=== PATIENT | female | born 1945 | race Caucasian/White ===

== ENCOUNTER 2017-01-19 15:53 | Emergency (ER) | payer MEDICARE ==
--- NOTE | 2017-01-19 16:47 | ERPHSYRPT ---
- History of Present Illness Time Seen by Provider: 01/19/17 16:30 Source: patient Patient Subjective Stated Complaint: left eye swelling, itching. also has swelling to left forehead. started at noon today Triage Nursing Assessment: ambulated to room per self. skin w/d, color normal. resp easy. swelling noted to left forehead and left eyelid. denies any injury to eye. Physician History: CC: swelling left eyelid Hx: 71 y/o pt of Dr Jason Grant. She has hx of HTN. No DM. Around noon today she noted swelling and a sore feeling at medial right eyelid. No blurred vision. No fever or chills. No bite or sting. No hx of this in the past. No itching or rash. It has worsened thru out the day. Timing/Duration: today (noon) Allergies/Adverse Reactions: Sulfa (Sulfonamide Antibiotics) [Sulfa(Sulfonamide Antibiotics)] Allergy ( Verified 01/19/17 16:12) Home Medications: Gabapentin [Neurontin] 100 mg PO DAILY 05/16/15 [History] Hydrocodone Bit/Acetaminophen [Hydrocodon-Acetaminophen 5-325] 1 each PO Q4- 6HPRN PRN 05/16/15 [History] Lisinopril 20 mg [Zestril 20 MG] 20 mg PO DAILY 05/16/15 [History] Sumatriptan Succinate [Imitrex] 50 mg PO DAILY 05/16/15 [History] Famotidine 20 mg [Pepcid 20 MG] 20 mg PO HS 03/12/16 [History] Hx Tetanus, Diphtheria Vaccination/Date Given: No (unknown) Hx Influenza Vaccination/Date Given: No Hx Pneumococcal Vaccination/Date Given: No - Review of Systems Constitutional: No Fever, No Chills Eyes: No Eye Redness, No Itchy, No Vision Changes Ears, Nose, & Throat: No Symptoms Skin: No Cellulitis, No Rash Neurological: No Dizziness, No Focal Weakness, No Headache, No Parasthesia All Other Systems: Reviewed and Negative - Past Medical History Pertinent Past Medical History: Yes Neurological History: Migraines, TIA Cardiac History: No Pertinent History Respiratory History: No Pertinent History Endocrine Medical History: No Pertinent History Musculoskeletal History: Other Other Medical History: L knee scope, R knee pain, TIA x2 - Past Surgical History Past Surgical History: Yes Musculoskeletal: Orthopedic Surgery Female Surgical History: Other - Social History Smoking Status: Never smoker Exposure to second hand smoke: No Drug Use: none Patient Lives Alone: No - Nursing Vital Signs Nursing Vital Signs: Initial Vital Signs Temperature 98.2 F 01/19/17 16:04 Pulse Rate 69 01/19/17 16:04 Respiratory Rate 16 01/19/17 16:04 Blood Pressure 172/89 01/19/17 16:04 O2 Sat by Pulse Oximetry 98 01/19/17 16:04 Pain Scale Pain Intensity 7 - Physical Exam General Appearance: alert Eye Exam: PERRL/EOMI, other (boggy edema right medial upper eyelid now extending across the lid. Some mild tenderness supraorbital area. No redness, drng, erythema, or marked tenderness. EOMI.) Ears, Nose, Throat Exam: normal ENT inspection, moist mucous membranes, other ( no tongue or mouth swelling), No pharyngeal erythema Neck Exam: normal inspection, non-tender, supple Respiratory Exam: normal breath sounds, lungs clear Cardiovascular Exam: regular rate/rhythm Neurologic Exam: alert, oriented x 3, cooperative, sensation nml, No motor deficits Skin Exam: warm, dry, No rash SpO2: 98 Oxygen Delivery: Room Air - Course Nursing assessment & vital signs reviewed: Yes - Progress Progress Note: 01/19/17 16:46 BP up some- advised recheck with Dr Grant. This does not appear to be periorbital cellulitis. It appears more allergic or angioedema. Afebrile. Will Rx hydroxyzine, stop lisinopril, start norvasc, and cover with kefelx. Instr given. Counseled pt/family regarding: diagnosis, need for follow-up - Departure Time of Disposition: 16:47 Departure Disposition: Home Clinical Impression: angioedema left eyelid, Hypertension Condition: Stable Critical Care Time: No Referrals: MARGI GRANT [ACTIVE STAFF] - Instructions: Angioedema Additional Instructions: Stop lisinopril. Rx norvasc. Rx hydroxyzine- no driving. Rx keflex. Return for fever, chills, marked worsening, pain out or proportion, trouble breathing, or concerns. Follow up with Dr Grant Sunday. Stay with family tonite. Prescriptions: Hydroxyzine HCl 1 tab PO Q6H PRN PRN #20 tablet PRN Reason: rash,rest Amlodipine Besylate 5 mg [Norvasc 5 mg] 5 mg PO DAILY #14 tablet Cephalexin Mh 500 mg [Keflex 500 mg] 1 cap PO QID #28 capsule
[2017-01-19 16:57] VITALS: BP 160/107; PULSE 65; O2SAT 97
== END 2017-01-19 17:02 | disposition home or self-care (01) ==
LOC: ED 15:53
DX: T78.3XXA Angioneurotic edema, initial encounter (principal); I10 Essential (primary) hypertension; Z79.891 Long term (current) use of opiate analgesic; Z79.899 Other long term (current) drug therapy
CPT/HCPCS: 99281

== ENCOUNTER 2017-04-10 11:26 | Emergency (ER) | payer MEDICARE ==
[2017-04-10 11:49] VITALS: O2SAT 97
--- NOTE | 2017-04-10 11:49 | ERPHSYRPT ---
- History of Present Illness Time Seen by Provider: 04/10/17 11:36 Source: patient, family Exam Limitations: no limitations Patient Subjective Stated Complaint: pt here for pain to left leg since sunday getting worse, no injury noted Triage Nursing Assessment: pt walked in, resp easy, skin w/d. has bruising to alvarez, no sweliing noted, pepdal pulse strong Physician History: patient with pain left lower leg - no known injury; no sob; no hemoptosis; no hx dvt; no prior hx; noticed painful bruise 3 days ago Method of Injury: unknown Occurred: days ago (3) Quality: aching Lower Extremities Pain: leg: left (anterior medical lower) Modifying Factors: Improves With: other (walking aggravates) Associated Symptoms: none Allergies/Adverse Reactions: Sulfa (Sulfonamide Antibiotics) [Sulfa(Sulfonamide Antibiotics)] Allergy ( Verified 04/10/17 11:41) Home Medications: Amlodipine Besylate 5 mg [Norvasc 5 mg] 10 mg PO DAILY 04/10/17 [History] Hx Tetanus, Diphtheria Vaccination/Date Given: No (unknown) Hx Influenza Vaccination/Date Given: No Hx Pneumococcal Vaccination/Date Given: No Immunizations Up to Date: Yes - Review of Systems Constitutional: No Symptoms Eyes: No Symptoms Ears, Nose, & Throat: No Symptoms Respiratory: No Cough, No Cyanosis, No Dyspnea, No Wheezing Cardiac: No Chest Pain, No Edema, No Palpitations, No Syncope Abdominal/Gastrointestinal: No Abdominal Pain, No Nausea, No Vomiting, No Diarrhea Genitourinary Symptoms: No Symptoms Musculoskeletal: No Back Pain, No Neck Pain, No Fall, No Joint Redness, No Joint Pain, No Joint Swelling Skin: Other (painful bruise left lwoer lag- anterior medial) Neurological: No Symptoms Psychological: No Symptoms Endocrine: No Symptoms Hematologic/Lymphatic: No Symptoms - Past Medical History Pertinent Past Medical History: Yes Neurological History: Migraines, TIA Cardiac History: No Pertinent History Respiratory History: No Pertinent History Endocrine Medical History: No Pertinent History Musculoskeletal History: Other Other Medical History: L knee scope, R knee pain, TIA x2 - Past Surgical History Past Surgical History: Yes Musculoskeletal: Orthopedic Surgery Female Surgical History: Other - Social History Smoking Status: Never smoker Exposure to second hand smoke: No Drug Use: none Patient Lives Alone: No Significant Family History: no pertinent family hx - Female History Hx Last Menstrual Period: post Hx Now: No - Nursing Vital Signs Nursing Vital Signs: Initial Vital Signs Temperature 97 F 04/10/17 11:30 Pulse Rate 83 04/10/17 11:30 Respiratory Rate 16 04/10/17 11:30 Blood Pressure 149/70 04/10/17 11:30 O2 Sat by Pulse Oximetry 97 04/10/17 11:30 Pain Scale Pain Intensity 6 - Physical Exam General Appearance: mild distress, alert, thin Eyes, Ears, Nose, Throat Exam: normal ENT inspection, TMs normal, pharynx normal , moist mucous membranes Neck Exam: normal inspection, non-tender, supple, full range of motion, No Kernig's, No carotid bruit, No JVD Cardiovascular/Respiratory Exam: chest non-tender, normal breath sounds, regular rate/rhythm, heart sounds normal, no JVD, no M/R/G, no respiratory distress Gastrointestinal/Abdominal Exam: non-tender, soft, no organomegaly Back Exam: normal inspection, normal range of motion, No CVA tenderness Hips Exam: bilateral: non-tender, normal inspection, normal range of motion, no evidence of injury Legs Exam: right leg: non-tender, normal inspection, no evidence of injury, ecchymosis (anterior medial bruise tender and slightly swollen), left leg: pain (anterior medial bruise tender and slightly swollen), soft tissue tenderness ( anterior medial bruise tender and slightly swollen), bilateral leg: normal range of motion Knees Exam: bilateral knee: non-tender, normal inspection, normal range of motion, no evidence of injury Ankle Exam: bilateral ankle: non-tender, normal inspection, normal range of motion, no evidence of injury Foot Exam: right foot: normal inspection, no evidence of injury, left foot: ecchymosis (old medial aspect; non tender), bilateral foot: non-tender, normal range of motion DTR - Lower Extremities Exam: knee (R): 4+, knee (L): 4+ Neuro/Tendon Exam: normal sensation, normal motor functions, normal tendon functions, responds to pain, no evidence tendon injury Mental Status Exam: alert, oriented x 3, cooperative Skin Exam: normal color, warm, dry, ecchymosis (left lower leg anterior medial) , No rash, No petechiae SpO2 Interpretation: normal SpO2: 97 Oxygen Delivery: Room Air - Course Nursing assessment & vital signs reviewed: Yes - Radiology Ultrasound Exam Left Venous Lower Extremity Ultrasound: tele radiology report, negative (no dvt) Ordered Tests: Active Orders 24 hr Category Date Time Status Pulse Oximetry (ED) STAT Care 04/10/17 11:43 Active VENOUS UNILAT/LIMITED EXTREMIT [US] Stat Exams 04/10/17 11:42 Ordered - Progress Progress: unchanged, re-examined (after US) Progress Note: 04/10/17 11:53 will get US checking for DVT and recheck 04/10/17 12:07 recheck after US left lower leg- neg for DVT; findings and instructions given Counseled pt/family regarding: diagnosis, rad results - Departure Time of Disposition: 12:07 Departure Disposition: Home Clinical Impression: Traumatic ecchymosis of left lower leg Condition: Stable Critical Care Time: No Referrals: MARGI GRANT [Primary Care Provider] - Instructions: Contusion Additional Instructions: Follow-up with family doctor as directed. Call for appointment. Return if any problems. If you smoke please stop. Call or follow up with your family doctor for assistance if you need it to stop. Please wear your seatbelt when driving. Have a nice day. Thank you for allowing us to participate in your care today. :o) Dr Robert Guardado
[2017-04-10 12:20] VITALS: BP 120/60; PULSE 80
--- NOTE | 2017-04-10 12:23 | XRAY ---
Indication: Left calf pain and bruising. Two-dimensional sonogram and color Doppler imaging of the major venous vessels of the left leg was performed. Comparison: None No thrombus seen in the examined deep venous vessels of the left leg including greater saphenous vein. Veins demonstrate normal compressibility. Venous waveforms are normal with and without augmentation. Targeted soft tissue ultrasound over the calf bruising negative for suspicious solid/cystic mass or abnormal fluid collection. Impression: Left leg negative for DVT.
== END 2017-04-10 12:17 | disposition home or self-care (01) ==
LOC: ED 11:26
DX: S80.12XA Contusion of left lower leg, initial encounter (principal); M79.662 Pain in left lower leg
CPT/HCPCS: 93971; 99283

== ENCOUNTER 2019-06-16 19:02 | Emergency (ER) | payer MEDICARE ==
--- NOTE | 2019-06-16 19:04 | ERPHSYRPT ---
- History of Present Illness Time Seen by Provider: 06/16/19 19:04 Source: patient, family Exam Limitations: clinical condition Physician History: This is a 74-year-old white female who presents with a migraine headache. It is her typical migraine headache. It began today at noon. Patient cannot hold down her Imitrex. Imitrex usually helps. Patient has light sensitivity. It is not the worst headache she is ever had. She denies any head trauma. Patient was seen in the emergency room other times and what helps her is injectable Imitrex and antinausea medication. Quality: aching, throbbing Head Pain Location: global Severity of Pain-Max: moderate Severity of Pain-Current: moderate Recent Head Trauma: occasional headaches Modifying Factors: Improves With: exposure to light, noise Associated Symptoms: nausea/vomiting, sensitive to light, No loss of consciousness, No neck pain, No speech problems, No vision changes Previous symptoms: same symptoms as today Allergies/Adverse Reactions: Sulfa (Sulfonamide Antibiotics) [Sulfa(Sulfonamide Antibiotics)] Allergy ( Verified 04/10/17 11:41) Home Medications: Amlodipine Besylate 5 mg [Norvasc 5 mg] 10 mg PO DAILY 04/10/17 [History] Amitriptyline HCl 10 mg PO DAILY 06/16/19 [History] Omeprazole 20 mg PO DAILY 06/16/19 [History] Simvastatin 20 mg PO DAILY 06/16/19 [History] Hx Tetanus, Diphtheria Vaccination/Date Given: No (unknown) Hx Influenza Vaccination/Date Given: No Hx Pneumococcal Vaccination/Date Given: No - Review of Systems Constitutional: No Symptoms Eyes: No Symptoms Ears, Nose, & Throat: No Symptoms Respiratory: No Symptoms Cardiac: No Symptoms Abdominal/Gastrointestinal: No Symptoms Genitourinary Symptoms: No Symptoms Musculoskeletal: No Symptoms Skin: No Symptoms Neurological: No Symptoms Psychological: No Symptoms Endocrine: No Symptoms Hematologic/Lymphatic: No Symptoms Immunological/Allergic: No Symptoms All Other Systems: Reviewed and Negative - Past Medical History Pertinent Past Medical History: Yes Neurological History: Migraines, TIA Cardiac History: No Pertinent History Respiratory History: No Pertinent History Endocrine Medical History: No Pertinent History Musculoskeletal History: Other GI Medical History: No Pertinent History History: No Pertinent History Psycho-Social History: No Pertinent History Female Reproductive Disorders: No Pertinent History Other Medical History: L knee scope, R knee pain, TIA x2 - Past Surgical History Past Surgical History: Yes Neuro Surgical History: No Pertinent History Cardiac: No Pertinent History Respiratory: No Pertinent History Gastrointestinal: No Pertinent History Genitourinary: No Pertinent History Musculoskeletal: Orthopedic Surgery Female Surgical History: Other - Social History Smoking Status: Never smoker Exposure to second hand smoke: No Drug Use: none Patient Lives Alone: No Significant Family History: no pertinent family hx - Nursing Vital Signs Nursing Vital Signs: Initial Vital Signs Temperature 97.7 F 06/16/19 19:24 Pulse Rate 82 06/16/19 19:24 Respiratory Rate 15 06/16/19 19:24 Blood Pressure 172/87 06/16/19 19:24 O2 Sat by Pulse Oximetry 99 06/16/19 19:24 Pain Scale Pain Intensity 7 - Physical Exam General Appearance: moderate distress, alert, anxiety Eye Exam: PERRL/EOMI, eyes nml inspection Ears, Nose, Throat Exam: normal ENT inspection, moist mucous membranes Neck Exam: normal inspection, non-tender, supple, full range of motion Respiratory Exam: normal breath sounds, lungs clear, airway intact, No chest tenderness, No respiratory distress Gastrointestinal/Abdominal Exam: No tenderness Back Exam: normal inspection, normal range of motion, No CVA tenderness, No vertebral tenderness Extremity Exam: normal inspection, normal range of motion, pelvis stable Mental Status Exam: alert, oriented x 3, cooperative cutter operator Exam: normal hearing, normal speech, PERRL Motor/Sensory Exam: no motor deficit, no sensory deficit Skin Exam: normal color, warm, dry Lymphatic Exam: No adenopathy SpO2 Interpretation: normal O2 Delivery: Room Air - Course Nursing assessment & vital signs reviewed: Yes Ordered Tests: Medication Summary Discontinued Medications Generic Name Dose Route Start Last Admin Trade Name Celestineq PRN Reason Stop Dose Admin Promethazine HCl 25 mg 06/16/19 19:27 06/16/19 19:59 Phenergan 25 Mg Inj IM 06/16/19 19:28 25 mg STAT ONE Administration Promethazine HCl Confirm 06/16/19 19:50 Phenergan 25 Mg Inj Administered 06/16/19 19:51 Dose 25 mg .ROUTE .STK-MED ONE Sumatriptan Succinate 6 mg 06/16/19 19:28 06/16/19 19:59 Imitrex 6 Mg/0.5 Ml SQ 06/16/19 19:29 6 mg STAT STA Administration Sumatriptan Succinate Confirm 06/16/19 19:50 Imitrex 6 Mg/0.5 Ml Administered 06/16/19 19:51 Dose 6 mg SQ .STK-MED ONE - Progress Progress: improved, re-examined Air Movement: good Progress Note: 06/16/19 20:29 Patient states she is feeling better and desires to go home. Blood Culture(s) Obtained: No Counseled pt/family regarding: diagnosis, need for follow-up, rad results - Departure Departure Disposition: Home Clinical Impression: Migraine headache Condition: Stable Critical Care Time: No Referrals: SARAHY GONZALEZ [Primary Care Provider] - Additional Instructions: Take your medication as prescribed. Follow-up with your primary care physician or neurologist for further management. Prescriptions: Promethazine HCl 25 mg Supp [Phenergan 25 mg Supp] 25 mg SD Q8H PRN PRN # 10 supp.rect MDD 3 PRN Reason: Nausea/Vomiting
[2019-06-16] MEDS ORDERED: Phenergan 25 MG INJ IM ONE (19:27)
[2019-06-16] MEDS ORDERED: Imitrex 6 MG/0.5 ML SQ STA (19:28)
[2019-06-16] MEDS ORDERED: Imitrex 6 MG/0.5 ML SQ ONE (19:50)
[2019-06-16] MEDS ORDERED: Phenergan 25 MG INJ ONE (19:50)
[2019-06-16 20:49] VITALS: BP 155/86; PULSE 71; O2SAT 94
== END 2019-06-16 20:50 | disposition home or self-care (01) ==
LOC: ED 19:02
DX: G43.909 Migraine, unspecified, not intractable, without status migrainosus (principal); R11.2 Nausea with vomiting, unspecified; Z79.899 Other long term (current) drug therapy; Z86.73 Personal history of transient ischemic attack (TIA), and cerebral infarction without residual deficits
CPT/HCPCS: 96372; 99283; J2550; J3030

== ENCOUNTER 2022-12-18 18:08 | Emergency (ER) | payer MEDICARE ==
[2022-12-18 18:22] VITALS: TEMP 97
[2022-12-18] MEDS ORDERED: BABY ASPIRIN 81 MG CHEW PO ONE (18:33)
[2022-12-18] MEDS ORDERED: BABY ASPIRIN 81 MG CHEW ONE (18:39)
--- NOTE | 2022-12-18 18:39 | ERPHSYRPT ---
- History of Present Illness Historian: patient, other (Son) Exam Limitations: no limitations Patient Subjective Stated Complaint: Chest pain Triage Nursing Assessment: Patient ambulated back to ED and transferred self to bed. Patient A+ O X3. Patient's skin pink, warm and dry. Patient states she started having chest pain that went from left to right chest that made her SOB. Patient states she was lying down when the pain started. Patient states she took Nitro X 1 which helped. Physician History: 77 yo WF w L lateral chest pain which radiated to the right side of her chest beginning at 16:50 and lasting 30 minutes. pain relieved by 1SL NTG. Pain accompanied by dyspnea but N/V/diaphoresis all denied. Pain 0/10 upon ER arrival but was 10/10 at inception. Pt has HTN/Hyperlipidemia but denies smoking/DM/NM/CAD. She sees Dr. Cardenas for Afib and is on Eliquis. Timing/Duration: other (16:50) Activities at Onset: rest Quality: sharpness Location: other (L lateral w radiation to R chest) Severity of Pain-Max: severe Severity of Pain-Current: none Modifying Factors: Improves With: nitroglycerin (1SL NTG ) Associated Symptoms: denies symptoms, shortness of breath Nitro Today/Relief: 0.4 mg x 1 Aspirin Treatment Today: no aspirin today Allergies/Adverse Reactions: Sulfa (Sulfonamide Antibiotics) [Sulfa(Sulfonamide Antibiotics)] Allergy (Verified 12/18/22 18:13) Home Medications: Amlodipine Besylate 5 mg [Norvasc 5 mg] 10 mg PO DAILY 04/10/17 [History] Amitriptyline HCl 10 mg PO DAILY 06/16/19 [History] Omeprazole 20 mg PO DAILY 06/16/19 [History] Simvastatin 20 mg PO DAILY 06/16/19 [History] Apixaban [Eliquis] 10 mg PO BID 12/18/22 [History] Hx Tetanus, Diphtheria Vaccination/Date Given: No (unknown) Hx Influenza Vaccination/Date Given: No Hx Pneumococcal Vaccination/Date Given: No Immunizations Up to Date: Yes Travel Risk - International Travel Have you traveled outside of the country in past 3 weeks: No - Coronavirus Screening Are you exhibiting any of the following symptoms?: No Close contact with a COVID-19 positive Pt in past 14-21 Days: No - Vaccine Status Have you recieved a Covid-19 vaccination: No - Review of Systems Constitutional: No Symptoms Eyes: No Symptoms Ears, Nose, & Throat: No Symptoms Respiratory: No Symptoms Abdominal/Gastrointestinal: No Symptoms Genitourinary Symptoms: No Symptoms Musculoskeletal: No Symptoms Skin: No Symptoms Neurological: No Symptoms Psychological: No Symptoms Endocrine: No Symptoms Hematologic/Lymphatic: No Symptoms Immunological/Allergic: No Symptoms - Past Medical History Pertinent Past Medical History: Yes Neurological History: TIA Cardiac History: Arrhythmia, Hypertension Respiratory History: No Pertinent History Endocrine Medical History: No Pertinent History Musculoskeletal History: Fibromyalgia, Osteoarthritis GI Medical History: No Pertinent History History: No Pertinent History Psycho-Social History: No Pertinent History Female Reproductive Disorders: No Pertinent History Other Medical History: PAST L KNEE SCOPE. FIBROMYALGIA IN TAILBONE AND B HIPS, NOTES MUCH PAIN WITH PALPATION. - Past Surgical History Past Surgical History: Yes Neuro Surgical History: No Pertinent History Cardiac: No Pertinent History Respiratory: No Pertinent History Gastrointestinal: No Pertinent History Genitourinary: No Pertinent History Musculoskeletal: Orthopedic Surgery Female Surgical History: Other - Social History Smoking Status: Never smoker Exposure to second hand smoke: No Drug Use: none Patient Lives Alone: No Significant Family History: no pertinent family hx - Nursing Vital Signs Nursing Vital Signs: Initial Vital Signs Temperature 97.0 F 12/18/22 18:16 Pulse Rate 75 12/18/22 18:16 Respiratory Rate 19 12/18/22 18:16 Blood Pressure 154/86 12/18/22 18:16 O2 Sat by Pulse Oximetry 97 12/18/22 18:16 Pain Scale Pain Intensity 0 Hypertension - Physical Exam General Appearance: no apparent distress Eye Exam: PERRL/EOMI, eyes nml inspection Ears, Nose, Throat Exam: normal ENT inspection, TMs normal, pharynx normal, moist mucous membranes Neck Exam: normal inspection, non-tender, supple, full range of motion, No meningismus, No mass, No Brudzinski, No Kernig's, No carotid bruit Respiratory Exam: normal breath sounds, lungs clear, airway intact, No chest tenderness, No respiratory distress Cardiovascular Exam: regular rate/rhythm, normal heart sounds, normal peripheral pulses, murmur (1/6 KAMILLE) Gastrointestinal/Abdomen Exam: soft, normal bowel sounds, No tenderness Back Exam: normal inspection, normal range of motion, No CVA tenderness, No vertebral tenderness Extremity Exam: normal inspection, normal range of motion Neurologic Exam: alert, oriented x 3, cooperative, 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 II-XII nml as tested, normal mood/affect, nml cerebellar function, nml station & gait, sensation nml Skin Exam: normal color, warm, dry, No rash Lymphatic Exam: No adenopathy SpO2 Interpretation: normal SpO2: 97 O2 Delivery: Room Air - Course Nursing assessment & vital signs reviewed: Yes EKG Interpreted by Me: RATE (NSR/Rate 73/Normal QT-QTc/Poor Rwave progression/Nonspecific ST changes) - Radiology Exams Chest X-ray Interpretation: Interpreted by me (CXR-NAD) Ordered Tests: Active Orders 24 hr Category Date Time Status EKG-ER Only STAT Care 12/18/22 18:33 Active CHEST 1 VIEW (PORTABLE) Stat Exams 12/18/22 18:33 Taken CBC W DIFF Stat Lab 12/18/22 18:50 Completed CMP Stat Lab 12/18/22 18:50 Completed NT PRO BNPII Stat Lab 12/18/22 18:50 Completed PROTIME WITH INR Stat Lab 12/18/22 18:50 Completed PTT Stat Lab 12/18/22 18:50 Completed TROPONIN Q4H Lab 12/18/22 18:50 Completed TROPONIN Q4H Lab 12/18/22 21:20 Completed TROPONIN Q4H Lab 12/19/22 02:45 Ordered Medication Summary Discontinued Medications Generic Name Dose Route Start Last Admin Trade Name Freq PRN Reason Stop Dose Admin Aspirin 324 mg 12/18/22 18:33 12/18/22 18:41 Aspirin 81 Mg Tab.Chew PO 12/18/22 18:34 324 mg STAT ONE Administration Aspirin Confirm 12/18/22 18:39 Aspirin 81 Mg Tab.Chew Administered 12/18/22 18:40 Dose 324 mg .ROUTE .STK-MED ONE Lab/Rad Data: Laboratory Result Diagrams 12/18/22 18:50 12/18/22 18:50 Laboratory Results 12/18/22 12/18/22 12/18/22 Range/Units 21:20 18:50 18:50 WBC (4.0-10.5) x10^3/uL RBC (4.1-5.4) x10^6/uL Hgb (12.0-16.0) g/dL Hct (35-47) % MCV (78-100) fL MCH (26-32) pg MCHC (32-36) g/dL RDW (11.5-14.0) % Plt Count (150-450) x10^3/uL MPV (7.5-11.0) fL Gran % (36.0-66.0) % Immature Gran % (Auto) (0.00-0.4) % Nucleat RBC Rel Count (0.00-0.1) % Eos # (Auto) (0-0.5) x10^3/uL Immature Gran # (Auto) (0.00-0.03) x10^3u/L Absolute Lymphs (auto) (1.0-4.6) x10^3/uL Absolute Monos (auto) (0.0-1.3) x10^3/uL Absolute Nucleated RBC (0.00-0.01) x10^3u/L Lymphocytes % (24.0-44.0) % Monocytes % (0.0-12.0) % Eosinophils % (0.00-5.0) % Basophils % (0.0-0.4) % Absolute Granulocytes (1.4-6.9) x10^3/uL Basophils # (0-0.4) x10^3/uL PT 10.3 (9.4-12.5) SECONDS INR 0.94 (0.8-3.0) APTT 26.2 (25.1-36.5) SECONDS Sodium (137-145) mmol/L Potassium (3.5-5.1) mmol/L Chloride (98-107) mmol/L Carbon Dioxide (22-30) mmol/L Anion Gap (5-15) MEQ/L BUN (7-17) mg/dL Creatinine (0.52-1.04) mg/dL Estimated GFR ML/MIN Glucose (74-106) mg/dL Calcium (8.4-10.2) mg/dL Total Bilirubin (0.2-1.3) mg/dL AST (14-36) U/L ALT (0-35) U/L Alkaline Phosphatase (38-126) U/L Troponin I < 0.012 < 0.012 (0.000-0.034) ng/mL NT-Pro-B Natriuret Pep (<300) pg/mL Serum Total Protein (6.3-8.2) g/dL Albumin (3.5-5.0) g/dL 12/18/22 12/18/22 Range/Units 18:50 18:50 WBC 5.6 (4.0-10.5) x10^3/uL RBC 3.79 L (4.1-5.4) x10^6/uL Hgb 11.7 L (12.0-16.0) g/dL Hct 37.2 (35-47) % MCV 98.2 (78-100) fL MCH 30.9 (26-32) pg MCHC 31.5 L (32-36) g/dL RDW 13.2 (11.5-14.0) % Plt Count 217 (150-450) x10^3/uL MPV 9.8 (7.5-11.0) fL Gran % 42.0 (36.0-66.0) % Immature Gran % (Auto) 0.2 (0.00-0.4) % Nucleat RBC Rel Count 0.0 (0.00-0.1) % Eos # (Auto) 0.10 (0-0.5) x10^3/uL Immature Gran # (Auto) 0.01 (0.00-0.03) x10^3u/L Absolute Lymphs (auto) 2.56 (1.0-4.6) x10^3/uL Absolute Monos (auto) 0.56 (0.0-1.3) x10^3/uL Absolute Nucleated RBC 0.00 (0.00-0.01) x10^3u/L Lymphocytes % 45.6 H (24.0-44.0) % Monocytes % 10.0 (0.0-12.0) % Eosinophils % 1.8 (0.00-5.0) % Basophils % 0.4 (0.0-0.4) % Absolute Granulocytes 2.36 (1.4-6.9) x10^3/uL Basophils # 0.02 (0-0.4) x10^3/uL PT (9.4-12.5) SECONDS INR (0.8-3.0) APTT (25.1-36.5) SECONDS Sodium 140 (137-145) mmol/L Potassium 4.0 (3.5-5.1) mmol/L Chloride 104 (98-107) mmol/L Carbon Dioxide 27 (22-30) mmol/L Anion Gap 12.6 (5-15) MEQ/L BUN 19 H (7-17) mg/dL Creatinine 0.75 (0.52-1.04) mg/dL Estimated GFR > 60.0 ML/MIN Glucose 129 H (74-106) mg/dL Calcium 9.3 (8.4-10.2) mg/dL Total Bilirubin 0.30 (0.2-1.3) mg/dL AST 24 (14-36) U/L ALT 16 (0-35) U/L Alkaline Phosphatase 58 (38-126) U/L Troponin I (0.000-0.034) ng/mL NT-Pro-B Natriuret Pep 141 (<300) pg/mL Serum Total Protein 6.6 (6.3-8.2) g/dL Albumin 4.1 (3.5-5.0) g/dL - Progress Progress: improved Progress Note: 12/18/22 22:10 Nursing note and vital signs reviewed No food or housing insecurities noted Additional history per son No chest pain or dyspnea while in ER All lab results reviewed and shared w pt/Son CXR ER reading shared w pt/son Troponin neg x2 12/18/22 22:15 Discussed obs admit w pt but elected to be discharged w PCP/cardiology follow up 12/18/22 22:18 Counseled pt/family regarding: lab results, diagnosis, need for follow-up, rad results Medical Desision Making - Independent Historian Additional History obtained from: Child - Diagnostic Testing Diagnostic test were ordered, analyzed, and reviewed by me: Yes Radiological Interpretation: Interpreted by me - Risk of complications The pt has a mod risk of morbidity or mortality based on: Need for prescription drug management - Departure Departure Disposition: Home Clinical Impression: Chest pain Condition: Stable Critical Care Time: No Referrals: SARAHY PONCE MD [Primary Care Provider] - Follow up/PCP as directed Instructions: Chest Pain (DC) Additional Instructions: Follow up with Dr. Ponce or Dr. Cardenas tomorrow Return to ER for any chest pain or shortness of breath
[2022-12-18 18:58] LABS: Absolute Neutrophil Ct (ANC) 2.36 x10^3/uL (1.4-6.9); BASOPHIL % 0.4 % (0.0-0.4); Basophil (Absolute #) 0.02 x10^3/uL (0-0.4); Eosinophil % 1.8 % (0.00-5.0); Hematocrit 37.2 % (35-47); Hemoglobin 11.7 g/dL (12.0-16.0); IMMATURE GRAN # 0.01 x10^3u/L (0.00-0.03); IMMATURE GRAN % 0.2 % (0.00-0.4); Lymphocyte (Absolute #) 2.56 x10^3/uL (1.0-4.6); Lymphocytes % 45.6 % (24.0-44.0); Mean Cell Volume 98.2 fL (78-100); Mean Corpuscular Hemoglobin 30.9 pg (26-32); Mean Corpuscular Hgb Concent. 31.5 g/dL (32-36); Mean Platelet Volume 9.8 fL (7.5-11.0); Monocyte (Absolute #) 0.56 x10^3/uL (0.0-1.3); Platelet Count 217 x10^3/uL (150-450); Red Blood Count 3.79 x10^6/uL (4.1-5.4); Red Cell Distribution Width 13.2 % (11.5-14.0); White Blood Count 5.6 x10^3/uL (4.0-10.5)
[2022-12-18 19:13] LABS: INR 0.94 (0.8-3.0); PROTIME 10.3 SECONDS (9.4-12.5); PTT 26.2 SECONDS (25.1-36.5)
[2022-12-18 19:21] LABS: ALBUMIN 4.1 g/dL (3.5-5.0); ALKALINE PHOSPHATASE 58 U/L (38-126); ANION GAP 12.6 MEQ/L (5-15); BLOOD UREA NITROGEN 19 mg/dL (7-17); CHLORIDE 104 mmol/L (98-107); Calcium 9.3 mg/dL (8.4-10.2); Carbon Dioxide 27 mmol/L (22-30); Creatinine 1 0.75 mg/dL (0.52-1.04); EST GLOMERULAR FILTRATION RATE > 60.0 ML/MIN; Glucose 129 mg/dL (74-106); NT PRO BNPII 141 pg/mL (<300); SGOT/AST 24 U/L (14-36); SGPT/ALT 16 U/L (0-35); SODIUM 140 mmol/L (137-145); Total Protein 6.6 g/dL (6.3-8.2)
[2022-12-18 22:06] VITALS: BP 103/71; PULSE 66; RESP 18
[2022-12-18 22:09] VITALS: O2SAT 97
--- NOTE | 2022-12-19 11:41 | XRAY ---
Indication: Chest pain. Comparison: February 05, 2022 Portable chest remains hyperinflated and clear. Heart not enlarged. Bony thorax intact again with osteopenia and mild degenerative changes. Impression: Continued nonacute hyperinflated chest.
== END 2022-12-18 22:18 | disposition home or self-care (01) ==
LOC: ED 18:08
DX: R07.9 Chest pain, unspecified (principal); R06.00 Dyspnea, unspecified; I10 Essential (primary) hypertension; E78.5 Hyperlipidemia, unspecified; Z79.01 Long term (current) use of anticoagulants; Z79.899 Other long term (current) drug therapy; Z28.310 Unvaccinated for COVID-19
CPT/HCPCS: 36415; 71045; 80053; 83880; 84484; 85025; 85610; 85730; 93005; 99284; A9270-GY

== ENCOUNTER 2023-11-15 10:00 | Emergency (ER) | payer MEDICARE ==
--- NOTE | 2023-11-15 10:17 | ERPHSYRPT ---
- History of Present Illness Time Seen by Provider: 11/15/23 10:17 Source: patient, family Exam Limitations: no limitations Physician History: This is a 78-year-old white female patient who was picking up trash and weeds in her yard when she lost her balance and fell hitting the right side of her head. She did not lose consciousness. Patient is on Eliquis anticoagulation therapy and there was a skin laceration on the right side of her head that had a continuous slow ooze. She also injured her right hand. Patient's tetanus status is not up-to-date. Patient denies chest pain. Patient denies shortness of breath. She is not having any dizziness or visual changes. It was merely, per her report, an issue of losing her balance. Patient does have a history of hypertension, gastroesophageal reflux disease, hyperlipidemia, atrial fibrillation and fibromyalgia Timing/Duration: today Quality: painful Severity: mild Location: scalp (Right parietal region) Associated Symptoms: denies symptoms Allergies/Adverse Reactions: Sulfa (Sulfonamide Antibiotics) [Sulfa(Sulfonamide Antibiotics)] Allergy (Verified 11/15/23 10:32) Home Medications: Amlodipine Besylate 5 mg [Norvasc 5 mg] 5 mg PO DAILY 04/10/17 [History] Amitriptyline HCl 10 mg PO DAILY PRN 06/16/19 [History] Omeprazole 20 mg PO DAILY 06/16/19 [History] Simvastatin 20 mg PO DAILY 06/16/19 [History] Apixaban [Eliquis] 10 mg PO BID 12/18/22 [History] Duloxetine HCl 60 mg PO DAILY 11/15/23 [History] Fenofibrate,Micronized 145 mg* [Tricor 145 MG] 145 mg PO DAILY 11/15/23 [History] Gabapentin 600 mg PO HS 11/15/23 [History] Hx Tetanus, Diphtheria Vaccination/Date Given: No (unknown) Hx Influenza Vaccination/Date Given: No Hx Pneumococcal Vaccination/Date Given: No Travel Risk - International Travel Have you traveled outside of the country in past 3 weeks: No - Emerging Infectious Disease Are you exhibiting symptoms associated with any current EIDs: No - Review of Systems Constitutional: No Symptoms Eyes: No Symptoms Ears, Nose, & Throat: No Symptoms Respiratory: No Symptoms Cardiac: No Symptoms Abdominal/Gastrointestinal: No Symptoms Genitourinary Symptoms: No Symptoms Musculoskeletal: Injury Skin: Other (Right hand laceration of skin right parietal region of the scalp) Neurological: Headache (Equalized in the area of the injury on the right side of her scalp), No Dizziness, No Speech Changes Psychological: No Symptoms Endocrine: No Symptoms Hematologic/Lymphatic: No Symptoms Immunological/Allergic: No Symptoms All Other Systems: Reviewed and Negative - Past Medical History Pertinent Past Medical History: Yes Neurological History: TIA Cardiac History: High Cholesterol, Hypertension Respiratory History: No Pertinent History Endocrine Medical History: No Pertinent History Musculoskeletal History: Osteoporosis GI Medical History: No Pertinent History History: No Pertinent History Psycho-Social History: No Pertinent History Female Reproductive Disorders: No Pertinent History Other Medical History: PSH: L WRIST ORIF, TUBAL LIGATION - Past Surgical History Past Surgical History: Yes Neuro Surgical History: No Pertinent History Cardiac: No Pertinent History Respiratory: No Pertinent History Gastrointestinal: No Pertinent History Genitourinary: No Pertinent History Musculoskeletal: Orthopedic Surgery Female Surgical History: Other Significant Family History: no pertinent family hx - Social History Smoking Status: Never smoker Exposure to second hand smoke: No Drug Use: none Patient Lives Alone: No - Nursing Vital Signs Nursing Vital Signs: Initial Vital Signs Temperature 97.7 F 11/15/23 10:16 Pulse Rate 62 11/15/23 10:16 Blood Pressure 170/86 11/15/23 10:16 O2 Sat by Pulse Oximetry 94 L 11/15/23 10:16 Pain Scale Pain Intensity 5 - Physical Exam General Appearance: no apparent distress, alert Eye Exam: PERRL/EOMI, eyes nml inspection Ears, Nose, Throat Exam: normal ENT inspection, moist mucous membranes Neck Exam: normal inspection, non-tender, supple, full range of motion Respiratory Exam: airway intact, No chest tenderness, No respiratory distress Gastrointestinal/Abdomen Exam: No tenderness Pelvic Exam: not done Rectal Exam: not done Back Exam: normal inspection, normal range of motion, No CVA tenderness, No vertebral tenderness Extremity Exam: normal range of motion, pelvis stable, tenderness, No deformities Neurologic Exam: alert, oriented x 3, cooperative, clerical associate II-XII nml as tested, normal mood/affect, sensation nml Skin Exam: other (2 cm skin laceration right parietal region. Oozing from the skin edge present. No foreign body noted.) Lymphatic Exam: No adenopathy SpO2 Interpretation: normal O2 Delivery: Room Air Procedures - Laceration/Wound Repair Right Occipital Time of Procedure: 10:55 Wound Location: Right, head (Parietal region) Wound Length (cm): 2 Wound's Depth, Shape: superficial, linear, into subcut Wound Explored: clean (Wound was explored to the base in a bloodless field and no foreign body noted) Irrigated: Yes Hibiclens Prep: Yes Anesthesia: 1% Lidocaine Volume Anesthetic (ccs): 2 Wound Repaired With: Carla (4 skin carla placed) - Course Nursing assessment & vital signs reviewed: Yes Ordered Tests: Active Orders 24 hr Category Date Time Status HAND (MINIMUM 3 VIEWS) Stat Exams 11/15/23 11:04 Completed HEAD WITHOUT CONTRAST [CT] Stat Exams 11/15/23 11:04 Completed Medication Summary Discontinued Medications Generic Name Dose Route Start Last Admin Trade Name Freq PRN Reason Stop Dose Admin Diphtheria/Tetanus/Acell Pertussis 0.5 ml 11/15/23 11:04 11/15/23 11:13 Tdap --Diph,Pertuss(Acell),Tet Vac/Pf 0.5 Ml Vial IM 11/15/23 11:05 0.5 ml .ONCE ONE Administration Diphtheria/Tetanus/Acell Pertussis Confirm 11/15/23 11:11 Tdap --Diph,Pertuss(Acell),Tet Vac/Pf 0.5 Ml Vial Administered 11/15/23 11:12 Dose 0.5 ml IM .STK-MED ONE Lidocaine HCl 3 ml 11/15/23 10:50 11/15/23 10:50 Lidocaine Hcl 1% 20 Ml Mdv 20 Ml Ml IJ 11/15/23 10:51 3 ml STAT ONE Administration Lidocaine HCl Confirm 11/15/23 10:49 Lidocaine Hcl 1% 20 Ml Mdv 20 Ml Ml Administered 11/15/23 10:50 Dose 3 ml .ROUTE .STK-MED ONE - Progress Progress: improved, pain not gone completely, re-examined Progress Note: 11/15/23 11:12 My medical decision making and the assignment of low to moderate complexity in this patient was based on review of the patient's past medical history, review the patient's medication list, review of patient drug allergy list, history present illness and physical findings on examination. The workup in this patient includes closure of the right scalp skin laceration, provide the patient with Adacel injection, x-ray of the patient's right hand and CT scan of the head. 11/15/23 12:17 I interpreted this patient's right hand preliminary x-ray report. I do not appreciate an acute cortical disruption, acute fracture or acute dislocation. The CT scan of the head without contrast was interpreted by the radiologist and I reviewed the impression. The impression states bilateral, remote basal ganglia/external capsule lacunar infarcts. No fracture or acute intracranial abnormality. Counseled pt/family regarding: diagnosis, need for follow-up, rad results Medical Desision Making - Independent Historian Additional History obtained from: Family - Diagnostic Testing Diagnostic test were ordered, analyzed, and reviewed by me: Yes Radiological Interpretation: Reviewed by me, Teleradiologist Report - Risk of complications Low Risk: Low risk of morbidity from additional dx testing or treatment - Departure Departure Disposition: Home Clinical Impression: Scalp laceration, Contusion of right hand Condition: Stable Critical Care Time: No Referrals: SARAHY GONZALEZ MD [Primary Care Provider] - Follow up/PCP as directed Additional Instructions: Keep the scalp skin laceration repair site dry until the evening of 11/16/2023 as discussed. Hold your blood thinning medication until the evening of 11/15/2021 as discussed. Ice pack to tender areas 3 times a day for the next 48 hours. On the evening of 11/16/2023, you may allow soapy water to flush over the laceration repair site daily thereafter. Blot dry use a executive chairman as discussed. Apply thin layer of antibiotic ointment. Staple removal in 10 days.
[2023-11-15 10:32] VITALS: PULSE 62; TEMP 97.7
[2023-11-15] MEDS ORDERED: XYLOCAINE 1% HCL 20 ML MDV ONE (10:49)
[2023-11-15] MEDS: XYLOCAINE 1% HCL 20 ML MDV IJ ONE (10:50)
[2023-11-15] MEDS ORDERED: Adacel Vial IM ONE (11:11)
[2023-11-15] MEDS: Adacel Vial IM ONE (11:13)
--- NOTE | 2023-11-15 12:12 | XRAY ---
Indication: Status post fall. Right parietal laceration. Blood thinner therapy. Multiple contiguous axial images obtained through the head without contrast. Comparison: None Age-appropriate global atrophy. Basal ganglia/external capsule demonstrates remote lacunar infarcts bilaterally. No acute intracranial hemorrhage, abnormal extra-axial fluid collection, or mass effect . Fourth ventricle is midline without hydrocephalus. Gore-white matter differentiation preserved. Bony calvarium intact. Right mid parietal scalp laceration with cutaneous carla. Visualized paranasal sinuses and mastoid air cells are clear. Impression: Bilateral basal ganglia/external capsule remote lacunar infarcts. Right parietal scalp laceration with cutaneous carla. No fracture or acute intracranial abnormalities.
--- NOTE | 2023-11-15 12:14 | XRAY ---
Indication: Pain following fall. Comparison: None 3 portable views right hand demonstrates osteopenia, minimal/mild degenerative changes all IP/MCP joints, and moderate/advanced 1st metacarpal multangular scaphoid degenerative changes. No other bony, articular, or soft tissue abnormalities. Impression: Nonacute right hand with chronic features.
[2023-11-15 12:32] VITALS: BP 167/86; O2SAT 95
== END 2023-11-15 12:54 | disposition home or self-care (01) ==
LOC: ED 10:00
DX: S01.01XA Laceration without foreign body of scalp, initial encounter (principal); S60.221A Contusion of right hand, initial encounter; W18.39XA Other fall on same level, initial encounter; Y93.H2 Activity, gardening and landscaping; Y92.007 Garden or yard of unspecified non-institutional (private) residence as the place of occurrence of the external cause; I10 Essential (primary) hypertension; E78.5 Hyperlipidemia, unspecified; Z79.01 Long term (current) use of anticoagulants; Z79.899 Other long term (current) drug therapy; Z23 Encounter for immunization
CPT/HCPCS: 12001; 70450; 73130; 90471; 90715; 96372; 99283

== ENCOUNTER 2024-01-25 15:47 | Emergency (ER) | payer MEDICARE ==
--- NOTE | 2024-01-25 15:51 | ERPHSYRPT ---
- History of Present Illness Time Seen by Provider: 01/25/24 15:51 Historian: patient, family Exam Limitations: no limitations Physician History: This is a 78-year-old white female patient of Dr. Gonzalez who presents to the emergency department via private vehicle secondary to sudden onset of burning type pain in the upper chest centrally into her anterior neck that lasted approximately 3 to 4 minutes. The symptoms then immediately resolved. She did not have any more episodes and arrives to the emergency department without chest pain or shortness of breath. Patient does have a history of atrial fibrillation and is on Eliquis. She has a history of hypertension, gastroesophageal reflux disease, fibromyalgia and hyperlipidemia Timing/Duration: today Quality: burning Location: substernal, central Chest Pain Radiation: jaw, neck Severity of Pain-Max: mild Severity of Pain-Current: none Modifying Factors: Improves With: nothing Associated Symptoms: denies symptoms Prior Chest Pain/Cardiac Workup: no prior chest pain Nitro Today/Relief: no nitro taken today Aspirin Treatment Today: no aspirin today Allergies/Adverse Reactions: Sulfa (Sulfonamide Antibiotics) [Sulfa(Sulfonamide Antibiotics)] Allergy (Verified 11/15/23 10:32) Home Medications: Amlodipine Besylate 5 mg [Norvasc 5 mg] 5 mg PO DAILY 04/10/17 [History] Amitriptyline HCl 10 mg PO DAILY PRN 06/16/19 [History] Omeprazole 20 mg PO DAILY 06/16/19 [History] Simvastatin 20 mg PO DAILY 06/16/19 [History] Apixaban [Eliquis] 10 mg PO BID 12/18/22 [History] Duloxetine HCl 60 mg PO DAILY 11/15/23 [History] Fenofibrate,Micronized 145 mg* [Tricor 145 MG] 145 mg PO DAILY 11/15/23 [History] Gabapentin 600 mg PO HS 11/15/23 [History] Hx Tetanus, Diphtheria Vaccination/Date Given: No (unknown) Hx Influenza Vaccination/Date Given: No Hx Pneumococcal Vaccination/Date Given: No Travel Risk - International Travel Have you traveled outside of the country in past 3 weeks: No - Emerging Infectious Disease Are you exhibiting symptoms associated with any current EIDs: No - Review of Systems Constitutional: No Symptoms Eyes: No Symptoms Ears, Nose, & Throat: No Symptoms Respiratory: No Symptoms Cardiac: Chest Pain (Now resolved) Abdominal/Gastrointestinal: No Symptoms Genitourinary Symptoms: No Symptoms Musculoskeletal: No Symptoms Skin: No Symptoms Neurological: No Symptoms Psychological: No Symptoms Endocrine: No Symptoms Hematologic/Lymphatic: No Symptoms Immunological/Allergic: No Symptoms All Other Systems: Reviewed and Negative - Past Medical History Pertinent Past Medical History: Yes Neurological History: TIA Cardiac History: High Cholesterol, Hypertension Respiratory History: No Pertinent History Endocrine Medical History: No Pertinent History Musculoskeletal History: Osteoporosis GI Medical History: No Pertinent History History: No Pertinent History Psycho-Social History: No Pertinent History Female Reproductive Disorders: No Pertinent History Other Medical History: PSH: L WRIST ORIF, TUBAL LIGATION - Past Surgical History Past Surgical History: Yes Neuro Surgical History: No Pertinent History Cardiac: No Pertinent History Respiratory: No Pertinent History Gastrointestinal: No Pertinent History Genitourinary: No Pertinent History Musculoskeletal: Orthopedic Surgery Female Surgical History: Other Significant Family History: no pertinent family hx - Social History Smoking Status: Never smoker Exposure to second hand smoke: No Drug Use: none Patient Lives Alone: No - Social Determinants of Health Will the patient participate in the screening: Yes Do you worry about a steady place to live?: No In the past 12 months,have you had to go without utilities?: No Transportation Issues: No Has anyone in your support network made you feel unsafe?: No Have you or anyone in your house had to go without enough: No - Nursing Vital Signs Nursing Vital Signs: Initial Vital Signs Temperature 96.8 F 01/25/24 15:48 Pulse Rate 70 01/25/24 15:48 Respiratory Rate 18 01/25/24 15:48 Blood Pressure 182/81 01/25/24 15:48 O2 Sat by Pulse Oximetry 98 01/25/24 15:48 Pain Scale Pain Intensity 0 - Physical Exam General Appearance: no apparent distress, alert, anxiety, thin Eye Exam: PERRL/EOMI, eyes nml inspection Ears, Nose, Throat Exam: normal ENT inspection, moist mucous membranes Neck Exam: normal inspection, non-tender, supple, full range of motion Respiratory Exam: normal breath sounds, lungs clear, airway intact, No chest tenderness, No respiratory distress Cardiovascular Exam: regular rate/rhythm, normal heart sounds, normal peripheral pulses Gastrointestinal/Abdomen Exam: soft, normal bowel sounds, No tenderness Pelvic Exam: not done Rectal Exam: not done Back Exam: normal inspection, normal range of motion, No CVA tenderness, No vertebral tenderness Extremity Exam: normal inspection, normal range of motion, pelvis stable Neurologic Exam: alert, oriented x 3, cooperative, 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 assistant entertainment and media II-XII nml as tested, nml cerebellar function, nml station & gait, sensation nml Skin Exam: normal color, warm, dry Lymphatic Exam: No adenopathy SpO2 Interpretation: normal O2 Delivery: Room Air - Course Nursing assessment & vital signs reviewed: Yes EKG Interpreted by Me: RATE (68), Sinus Rhythm, NORMAL AXIS, NORMAL INTERVALS, NORMAL QRS, Other (No acute ischemia on today's twelve-lead EKG.) Ordered Tests: Active Orders 24 hr Category Date Time Status EKG-ER Only STAT Care 01/25/24 16:14 Active IV Insertion STAT Care 01/25/24 16:14 Active Pulse Oximetry (ED) STAT Care 01/25/24 16:14 Active CHEST 1 VIEW (PORTABLE) Stat Exams 01/25/24 16:14 Completed CBC W DIFF Stat Lab 01/25/24 16:20 Completed CMP Stat Lab 01/25/24 16:20 Completed TROPONIN Q4H Lab 01/25/24 16:20 Completed TROPONIN Q4H Lab 01/25/24 20:15 Ordered TROPONIN Q4H Lab 01/26/24 00:15 Ordered Medication Summary Discontinued Medications Generic Name Dose Route Start Last Admin Trade Name Celestineq PRN Reason Stop Dose Admin Aspirin 324 mg 01/25/24 16:14 01/25/24 16:29 Aspirin 81 Mg Tab.Chew PO 01/25/24 16:15 324 mg STAT ONE Administration Aspirin Confirm 01/25/24 16:27 Aspirin 81 Mg Tab.Chew Administered 01/25/24 16:28 Dose 324 mg .ROUTE .STK-MED ONE Lab/Rad Data: Laboratory Result Diagrams 01/25/24 16:20 01/25/24 16:20 Laboratory Results 01/25/24 01/25/24 01/25/24 Range/Units 16:20 16:20 16:20 WBC 6.7 (3.98-10.04) x10^3/uL RBC 4.24 (3.93-5.22) x10^6/uL Hgb 13.1 (11.2-15.7) g/dL Hct 40.0 (34.1-44.9) % MCV 94.3 (79.4-94.8) fL MCH 30.9 (25.6-32.2) pg MCHC 32.8 (32.2-35.5) g/dL RDW 13.5 (11.7-14.4) % Plt Count 270 (182-369) x10^3/uL MPV 10.4 (9.4-12.3) fL Gran % 49.9 (34.0-71.1) % Immature Gran % (Auto) 0.3 (0.001-0.429) % Nucleat RBC Rel Count 0.0 (0.00-0.2) % Eos # (Auto) 0.12 (0.04-0.36) x10^3/uL Immature Gran # (Auto) 0.02 (0.001-0.031) x10^3u/L Absolute Lymphs (auto) 2.65 (1.18-3.74) x10^3/uL Absolute Monos (auto) 0.56 (0.24-0.86) x10^3/uL Absolute Nucleated RBC 0.00 (0.00-0.012) x10^3u/L Lymphocytes % 39.4 (19.3-51.7) % Monocytes % 8.3 (4.7-12.5) % Eosinophils % 1.8 (0.7-5.8) % Basophils % 0.3 (0.1-1.2) % Absolute Granulocytes 3.36 (1.56-6.13) x10^3/uL Basophils # 0.02 (0.01-0.08) x10^3/uL Sodium 142 (135-145) mmol/L Potassium 3.7 (3.5-5.1) mmol/L Chloride 104 (98-107) mmol/L Carbon Dioxide 27 (22-30) mmol/L Anion Gap 14.6 (5-15) MEQ/L BUN 22 H (7-17) mg/dL Creatinine 1.22 H (0.52-1.04) mg/dL Estimated GFR 46.0 ML/MIN Glucose 97 (74-106) mg/dL Calcium 9.5 (8.4-10.2) mg/dL Total Bilirubin 0.50 (0.2-1.3) mg/dL AST 30 (14-36) U/L ALT 16 (0-35) U/L Alkaline Phosphatase 49 (38-126) U/L Troponin I < 0.012 (0.000-0.033) ng/mL Serum Total Protein 7.6 (6.3-8.2) g/dL Albumin 4.7 (3.5-5.0) g/dL - Progress Progress: improved, re-examined Air Movement: good Progress Note: 01/25/24 16:47 My medical decision making and the assignment of the moderate complexity to this patient's medical issue today is based on review of the patient's past medical history, review of the patient's medication list, review of the patient's drug allergy list, history present illness and physical findings on examination. The workup in this patient includes placement of intravenous line, twelve-lead EKG, CBC, CMP, troponin level, magnesium level and chest x-ray. Differential diagnosis includes but is not limited to myocardial infarction, arrhythmia, electrolyte abnormalities, pneumonia I did not order a D-dimer level as this patient is on Eliquis and has a low likelihood of pulmonary embolus. 01/25/24 17:19 I interpreted the patient's laboratory data results. Based on the laboratory data results, the patient has no acute or emergent medical issue. 01/25/24 17:20 I interpreted the patient's preliminary chest x-ray report. There are no acute cardiopulmonary processes. The radiologist dictated the patient's final chest x-ray report. There are no acute cardiopulmonary processes. Blood Culture(s) Obtained: No Antibiotics given: No Counseled pt/family regarding: lab results, diagnosis, need for follow-up Medical Desision Making - Independent Historian Additional History obtained from: Family - Diagnostic Testing Diagnostic test were ordered, analyzed, and reviewed by me: Yes Radiological Interpretation: Interpreted by me, Reviewed by me, Teleradiologist Report - Risk of complications Low Risk: Low risk of morbidity from additional dx testing or treatment - Departure Departure Disposition: Home Clinical Impression: Nonspecific chest pain Condition: Stable Critical Care Time: No Referrals: SARAHY GONZALEZ MD [Primary Care Provider] - Follow up/PCP as directed Additional Instructions: Take all your medications as prescribed. Call your primary care provider on 02/28/2024 to make arrangements for follow-up appointment for further evaluation management including referral to transit operations supervisor if indicated.
[2024-01-25 15:53] VITALS: TEMP 96.8
[2024-01-25 16:25] LABS: Absolute Neutrophil Ct (ANC) 3.36 x10^3/uL (1.56-6.13); BASOPHIL % 0.3 % (0.1-1.2); Basophil (Absolute #) 0.02 x10^3/uL (0.01-0.08); Eosinophil % 1.8 % (0.7-5.8); Eosinophil (Absolute #) 0.12 x10^3/uL (0.04-0.36); Hemoglobin 13.1 g/dL (11.2-15.7); IMMATURE GRAN # 0.02 x10^3u/L (0.001-0.031); IMMATURE GRAN % 0.3 % (0.001-0.429); Lymphocyte (Absolute #) 2.65 x10^3/uL (1.18-3.74); Lymphocytes % 39.4 % (19.3-51.7); Mean Cell Volume 94.3 fL (79.4-94.8); Mean Corpuscular Hemoglobin 30.9 pg (25.6-32.2); Mean Corpuscular Hgb Concent. 32.8 g/dL (32.2-35.5); Mean Platelet Volume 10.4 fL (9.4-12.3); Monocyte (Absolute #) 0.56 x10^3/uL (0.24-0.86); Monocytes % 8.3 % (4.7-12.5); Neutrophil % 49.9 % (34.0-71.1); Platelet Count 270 x10^3/uL (182-369); Red Blood Count 4.24 x10^6/uL (3.93-5.22); Red Cell Distribution Width 13.5 % (11.7-14.4); White Blood Count 6.7 x10^3/uL (3.98-10.04)
[2024-01-25] MEDS ORDERED: BABY ASPIRIN 81 MG CHEW ONE (16:27)
[2024-01-25] MEDS: BABY ASPIRIN 81 MG CHEW PO ONE (16:29)
[2024-01-25 16:39] LABS: ALBUMIN 4.7 g/dL (3.5-5.0); ANION GAP 14.6 MEQ/L (5-15); BILIRUBIN,TOTAL 0.5 mg/dL (0.2-1.3); Calcium 9.5 mg/dL (8.4-10.2); Creatinine 1 1.22 mg/dL (0.52-1.04); Potassium 3.7 mmol/L (3.5-5.1); Total Protein 7.6 g/dL (6.3-8.2)
--- NOTE | 2024-01-25 16:42 | XRAY ---
Indication: Chest pain. Comparison: December 18, 2022 Portable chest inflated and remains clear. Heart not enlarged. Bony thorax intact again with osteopenia and mild degenerative changes. No new/acute findings.
[2024-01-25 17:26] VITALS: RESP 20; O2SAT 97
[2024-01-25 17:45] VITALS: BP 162/96; PULSE 68
== END 2024-01-25 17:57 | disposition home or self-care (01) ==
LOC: ED 15:47
DX: R07.9 Chest pain, unspecified (principal); M54.2 Cervicalgia; I10 Essential (primary) hypertension; E78.5 Hyperlipidemia, unspecified; Z79.01 Long term (current) use of anticoagulants; Z79.899 Other long term (current) drug therapy
CPT/HCPCS: 36000; 36415; 71045; 80053; 84484; 85025; 93005; 94760; 99284; A9270-GY

== ENCOUNTER 2025-01-05 13:25 | Emergency (ER) | payer MEDICARE ==
[2025-01-05 13:45] VITALS: TEMP 96.9
[2025-01-05 14:11] LABS: BASOPHIL % 0.4 % (0.1-1.2); Basophil (Absolute #) 0.03 x10^3/uL (0.01-0.08); Eosinophil (Absolute #) 0.11 x10^3/uL (0.04-0.36); Hematocrit 40.5 % (34.1-44.9); Hemoglobin 12.8 g/dL (11.2-15.7); IMMATURE GRAN # 0.02 x10^3u/L (0.001-0.031); IMMATURE GRAN % 0.3 % (0.001-0.429); Lymphocyte (Absolute #) 2.87 x10^3/uL (1.18-3.74); Mean Corpuscular Hemoglobin 31.1 pg (25.6-32.2); Mean Corpuscular Hgb Concent. 31.6 g/dL (32.2-35.5); Monocyte (Absolute #) 0.68 x10^3/uL (0.24-0.86); NUCLEATED RBC # 0.00 x10^3u/L (0.00-0.012); NUCLEATED RBC % 0.0 % (0.00-0.2); Platelet Count 270 x10^3/uL (182-369); Red Blood Count 4.12 x10^6/uL (3.93-5.22); White Blood Count 7.5 x10^3/uL (3.98-10.04)
--- NOTE | 2025-01-05 14:17 | XRAY ---
Indication: Chest pain. Comparison: January 25, 2024 Portable chest hyperinflated and remains clear. Heart not enlarged. Bony thorax intact again with osteopenia and degenerative changes. No new/acute findings.
[2025-01-05 14:25] LABS: CK-Creatinine Phosphokinase 55.0 U/L (30-135); Calcium 9.6 mg/dL (8.4-10.2); Carbon Dioxide 26.0 mmol/L (22-30); Creatinine 1 1.22 mg/dL (0.52-1.04); EST GLOMERULAR FILTRATION RATE 45.7 ML/MIN; Glucose 127.0 mg/dL (74-106); Potassium 3.8 mmol/L (3.5-5.1); SGOT/AST 30.0 U/L (14-36); SGPT/ALT 14.0 U/L (0-35); Total Protein 7.6 g/dL (6.3-8.2)
[2025-01-05 16:06] VITALS: BP 147/95; PULSE 74; RESP 17; O2SAT 96
--- NOTE | 2025-01-05 16:17 | ERPHSYRPT ---
- History of Present Illness Time Seen by Provider: 01/05/25 13:30 Source: patient Exam Limitations: no limitations Patient Subjective Stated Complaint: Pt. states, "I started having chest pain about 45 minutes ago and I broke out in a sweat and got nauseated. I called my and he came and gave me one of his nitro tablets. The pain is gone now but I still feel a little nauseated." Triage Nursing Assessment: Pt. ambulates to room without difficulty, A&Ox4, Skin pale, warm amd dry, Resp. even unlabored. No edema. Timing/Duration: today Severity: mild Associated Symptoms: denies symptoms Allergies/Adverse Reactions: Sulfa (Sulfonamide Antibiotics) [Sulfa(Sulfonamide Antibiotics)] Allergy (Verified 11/15/23 10:32) Home Medications: Amlodipine Besylate 5 mg [Norvasc 5 mg] 5 mg PO DAILY 04/10/17 [History] Amitriptyline HCl 10 mg PO DAILY PRN 06/16/19 [History] Omeprazole 20 mg PO DAILY 06/16/19 [History] Simvastatin 20 mg PO DAILY 06/16/19 [History] Apixaban [Eliquis] 10 mg PO BID 12/18/22 [History] Duloxetine HCl 60 mg PO DAILY 11/15/23 [History] Fenofibrate,Micronized 145 mg* [Tricor 145 MG] 145 mg PO DAILY 11/15/23 [History] Gabapentin 600 mg PO HS 11/15/23 [History] Hx Tetanus, Diphtheria Vaccination/Date Given: No (unknown) Hx Influenza Vaccination/Date Given: No Hx Pneumococcal Vaccination/Date Given: No Immunizations Up to Date: No Travel Risk - International Travel Have you traveled outside of the country in past 3 weeks: No - Emerging Infectious Disease Are you exhibiting symptoms associated with any current EIDs: No - Review of Systems Constitutional: No Symptoms Eyes: No Symptoms Ears, Nose, & Throat: No Symptoms Respiratory: No Symptoms Cardiac: Chest Pain Abdominal/Gastrointestinal: No Symptoms, Appetite Changes Musculoskeletal: No Symptoms - Past Medical History Pertinent Past Medical History: Yes Neurological History: TIA Cardiac History: Arrhythmia, High Cholesterol, Hypertension Respiratory History: No Pertinent History Endocrine Medical History: No Pertinent History Musculoskeletal History: Osteoporosis GI Medical History: No Pertinent History History: No Pertinent History Psycho-Social History: No Pertinent History Female Reproductive Disorders: No Pertinent History Other Medical History: PSH: L WRIST ORIF, TUBAL LIGATION. Sees Dr. Cardenas for sinus arrhythmia - Past Surgical History Past Surgical History: Yes Neuro Surgical History: No Pertinent History Cardiac: No Pertinent History Respiratory: No Pertinent History Gastrointestinal: No Pertinent History Genitourinary: No Pertinent History Musculoskeletal: Orthopedic Surgery Female Surgical History: Other Significant Family History: no pertinent family hx - Social History Smoking Status: Never smoker Exposure to second hand smoke: No Drug Use: none - Social Determinants of Health Will the patient participate in the screening: Declined to provide - Nursing Vital Signs Nursing Vital Signs: Initial Vital Signs Temperature 96.9 F 01/05/25 13:27 Pulse Rate 63 01/05/25 13:27 Respiratory Rate 18 01/05/25 13:27 Blood Pressure 125/60 01/05/25 13:27 O2 Sat by Pulse Oximetry 98 01/05/25 13:27 Pain Scale Pain Intensity 0 - Physical Exam General Appearance: no apparent distress Eye Exam: PERRL/EOMI Ears, Nose, Throat Exam: normal ENT inspection Respiratory Exam: normal breath sounds Cardiovascular Exam: regular rate/rhythm Gastrointestinal/Abdomen Exam: soft, normal bowel sounds SpO2: 96 Ordered Tests: Active Orders 24 hr Category Date Time Status CHEST 1 VIEW (PORTABLE) Stat Exams 01/05/25 13:53 Completed AMYLASE Stat Lab 01/05/25 13:50 Completed CBC W DIFF Stat Lab 01/05/25 13:50 Completed CK-Creatinine Phosphokinase Stat Lab 01/05/25 13:50 Completed CMP Stat Lab 01/05/25 13:50 Completed LIPASE Stat Lab 01/05/25 13:50 Completed MAGNESIUM Stat Lab 01/05/25 13:50 Completed NT PRO BNPII Stat Lab 01/05/25 13:50 Completed TROPONIN Q4H Lab 01/05/25 13:50 Completed TROPONIN Q4H Lab 01/05/25 18:00 Ordered TROPONIN Q4H Lab 01/05/25 22:00 Ordered Medication Summary Generic Name Dose Route Start Last Admin Trade Name Freq PRN Reason Stop Dose Admin Sodium Chloride 1,000 mls @ 50 mls/hr 01/05/25 14:00 01/05/25 14:23 Sodium Chloride 0.9% 1000 Ml IV 02/04/25 13:59 50 mls/hr .Q20H BRITNEY Administration Lab/Rad Data: Laboratory Result Diagrams 01/05/25 13:50 01/05/25 13:50 Laboratory Results 01/05/25 01/05/25 01/05/25 Range/Units 13:50 13:50 13:50 WBC (3.98-10.04) x10^3/uL RBC (3.93-5.22) x10^6/uL Hgb (11.2-15.7) g/dL Hct (34.1-44.9) % MCV (79.4-94.8) fL MCH (25.6-32.2) pg MCHC (32.2-35.5) g/dL RDW (11.7-14.4) % Plt Count (182-369) x10^3/uL MPV (9.4-12.3) fL Gran % (34.0-71.1) % Immature Gran % (Auto) (0.001-0.429) % Nucleat RBC Rel Count (0.00-0.2) % Eos # (Auto) (0.04-0.36) x10^3/uL Immature Gran # (Auto) (0.001-0.031) x10^3u/L Absolute Lymphs (auto) (1.18-3.74) x10^3/uL Absolute Monos (auto) (0.24-0.86) x10^3/uL Absolute Nucleated RBC (0.00-0.012) x10^3u/L Lymphocytes % (19.3-51.7) % Monocytes % (4.7-12.5) % Eosinophils % (0.7-5.8) % Basophils % (0.1-1.2) % Absolute Granulocytes (1.56-6.13) x10^3/uL Basophils # (0.01-0.08) x10^3/uL Sodium 141 (135-145) mmol/L Potassium 3.8 (3.5-5.1) mmol/L Chloride 106 (98-107) mmol/L Carbon Dioxide 26 (22-30) mmol/L Anion Gap 12.6 (5-15) MEQ/L BUN 22 H (7-17) mg/dL Creatinine 1.22 H (0.52-1.04) mg/dL Estimated GFR 45.7 ML/MIN Glucose 127 H (74-106) mg/dL Calcium 9.6 (8.4-10.2) mg/dL Magnesium 1.9 (1.6-2.3) mg/dL Total Bilirubin 0.50 (0.2-1.3) mg/dL AST 30 (14-36) U/L ALT 14 (0-35) U/L Alkaline Phosphatase 41 (38-126) U/L Creatine Kinase 55 (30-135) U/L Troponin I < 0.012 (0.000-0.033) ng/mL NT-Pro-B Natriuret Pep 212 (<300) pg/mL Serum Total Protein 7.6 (6.3-8.2) g/dL Albumin 4.7 (3.5-5.0) g/dL Amylase 80 (30-110) U/L Lipase 91 (23-300) U/L / Range/Units 13:50 WBC 7.5 (3.98-10.04) x10^3/uL RBC 4.12 (3.93-5.22) x10^6/uL Hgb 12.8 (11.2-15.7) g/dL Hct 40.5 (34.1-44.9) % MCV 98.3 H (79.4-94.8) fL MCH 31.1 (25.6-32.2) pg MCHC 31.6 L (32.2-35.5) g/dL RDW 13.6 (11.7-14.4) % Plt Count 270 (182-369) x10^3/uL MPV 10.9 (9.4-12.3) fL Gran % 50.2 (34.0-71.1) % Immature Gran % (Auto) 0.3 (0.001-0.429) % Nucleat RBC Rel Count 0.0 (0.00-0.2) % Eos # (Auto) 0.11 (0.04-0.36) x10^3/uL Immature Gran # (Auto) 0.02 (0.001-0.031) x10^3u/L Absolute Lymphs (auto) 2.87 (1.18-3.74) x10^3/uL Absolute Monos (auto) 0.68 (0.24-0.86) x10^3/uL Absolute Nucleated RBC 0.00 (0.00-0.012) x10^3u/L Lymphocytes % 38.5 (19.3-51.7) % Monocytes % 9.1 (4.7-12.5) % Eosinophils % 1.5 (0.7-5.8) % Basophils % 0.4 (0.1-1.2) % Absolute Granulocytes 3.75 (1.56-6.13) x10^3/uL Basophils # 0.03 (0.01-0.08) x10^3/uL Sodium (135-145) mmol/L Potassium (3.5-5.1) mmol/L Chloride (98-107) mmol/L Carbon Dioxide (22-30) mmol/L Anion Gap (5-15) MEQ/L BUN (7-17) mg/dL Creatinine (0.52-1.04) mg/dL Estimated GFR ML/MIN Glucose (74-106) mg/dL Calcium (8.4-10.2) mg/dL Magnesium (1.6-2.3) mg/dL Total Bilirubin (0.2-1.3) mg/dL AST (14-36) U/L ALT (0-35) U/L Alkaline Phosphatase (38-126) U/L Creatine Kinase (30-135) U/L Troponin I (0.000-0.033) ng/mL NT-Pro-B Natriuret Pep (<300) pg/mL Serum Total Protein (6.3-8.2) g/dL Albumin (3.5-5.0) g/dL Amylase (30-110) U/L Lipase (23-300) U/L - Progress Progress Note: Patient was seen and evaluated for complaints of chest pain labs were obtained EKG was reviewed she received nitro prior to coming in by her and her chest pain has resolved she has no other complaints at this time. Patient was updated with the results of her lab work and her chest x-ray she was informed of the need for admission given her symptoms and response to nitro however she refuses, she is of sound medical decision-making capability and wants to go home Sasha DAVILA present for the discussion 01/05/25 16:15 Medical Desision Making - Discussion of managment Reviewed:: Need for additional workup Will see patient: In office - Departure Departure Disposition: Home Clinical Impression: Chest pain Condition: Stable Critical Care Time: No Referrals: SARAHY GONZALEZ MD [Primary Care Provider, [facility]] - Follow up/PCP as directed
== END 2025-01-05 16:35 | disposition home or self-care (01) ==
LOC: ED 13:25
DX: R07.9 Chest pain, unspecified (principal); I10 Essential (primary) hypertension; Z79.01 Long term (current) use of anticoagulants; Z79.899 Other long term (current) drug therapy

== ENCOUNTER 2025-01-23 12:42 | Emergency (ER) | payer MEDICARE ==
[2025-01-23 12:58] VITALS: BP 135/75; PULSE 70; TEMP 97.8; O2SAT 99
[2025-01-23] MEDS ORDERED: Cyclobenzaprine 10 MG ONE (13:04)
[2025-01-23] MEDS: Cyclobenzaprine 10 MG PO ONE (13:05)
--- NOTE | 2025-01-23 13:05 | ERPHSYRPT ---
- History of Present Illness Time Seen by Provider: 01/23/25 12:44 Source: patient, family Exam Limitations: no limitations Patient Subjective Stated Complaint: low medial back pain that radiates to the left Triage Nursing Assessment: Pt brought to the ER by her daughter, jesus valdesl, rates pain as 4/10 while not moving, pulses normal, skin n/w/d, pt fell approx 1.5 weeks ago and landed on the grass, didn't have pain complaint until 3 days ago when she began having low medial back pain that radiates to the left, denies any other injuries, no difficulty breathing, denies chest pain, pt walked into the ER with a cane Physician History: 79-year-old female presents to the emergency room with lower back pain denies any radiation patient reports she fell a week prior while she was feeding her chickens she denies at that time hitting her head or losing consciousness she reports she was able to get back up and ambulate after the injury she reports a few days after her back started hurting reports tried topical medication and tramadol prior to arrival now in ED for further eval Timing/Duration: day(s) (3) Method of Injury: bending, fall Quality: aching Back Pain Location: lumbar spine Severity of Pain-Max: mild Severity of Pain-Current: mild Associated Symptoms: lower back pain, No loss of bowel control, No constipation, No vomiting, No problems urinating, No light-headedness, No dizziness Allergies/Adverse Reactions: Sulfa (Sulfonamide Antibiotics) [Sulfa(Sulfonamide Antibiotics)] Allergy (Verified 01/23/25 12:58) Home Medications: Amlodipine Besylate 5 mg [Norvasc 5 mg] 5 mg PO DAILY 04/10/17 [History] Simvastatin 20 mg PO DAILY 06/16/19 [History] Apixaban [Eliquis] 5 mg PO BID 12/18/22 [History] Duloxetine HCl 60 mg PO DAILY 11/15/23 [History] Fenofibrate,Micronized 145 mg* [Tricor 145 MG] 145 mg PO DAILY 11/15/23 [History] Famotidine 40 mg PO DAILY 01/23/25 [History] Losartan Potassium 50 mg [Cozaar 50 MG] 50 mg PO DAILY 01/23/25 [History] Tramadol HCl 50 mg [Ultram 50 mg] 50 mg PO TID PRN 01/23/25 [History] dilTIAZem HCL [Diltiazem 24Hr ER (Xr)] 180 mg PO DAILY 01/23/25 [History] Hx Tetanus, Diphtheria Vaccination/Date Given: No (unknown) Hx Influenza Vaccination/Date Given: No Hx Pneumococcal Vaccination/Date Given: No Travel Risk - International Travel Have you traveled outside of the country in past 3 weeks: No - Emerging Infectious Disease Are you exhibiting symptoms associated with any current EIDs: No - Review of Systems Constitutional: No Fever, No Chills Eyes: No Symptoms Ears, Nose, & Throat: No Symptoms Respiratory: No Cough, No Dyspnea Cardiac: No Chest Pain, No Edema, No Syncope Abdominal/Gastrointestinal: No Abdominal Pain, No Nausea, No Vomiting, No Diarrhea Genitourinary Symptoms: No Dysuria Musculoskeletal: Back Pain, No Neck Pain Skin: No Rash Neurological: No Dizziness, No Focal Weakness, No Sensory Changes Psychological: No Symptoms Endocrine: No Symptoms All Other Systems: Reviewed and Negative - Past Medical History Pertinent Past Medical History: Yes Neurological History: TIA Cardiac History: Arrhythmia, High Cholesterol, Hypertension Respiratory History: No Pertinent History Endocrine Medical History: No Pertinent History Musculoskeletal History: Osteoporosis GI Medical History: No Pertinent History History: No Pertinent History Psycho-Social History: No Pertinent History Female Reproductive Disorders: No Pertinent History Other Medical History: PSH: L WRIST ORIF, TUBAL LIGATION. Sees Dr. Cardenas for sinus arrhythmia - Past Surgical History Past Surgical History: Yes Neuro Surgical History: No Pertinent History Cardiac: No Pertinent History Respiratory: No Pertinent History Gastrointestinal: No Pertinent History Genitourinary: No Pertinent History Musculoskeletal: Orthopedic Surgery Female Surgical History: Other Significant Family History: no pertinent family hx - Social History Smoking Status: Never smoker Exposure to second hand smoke: No Drug Use: none - Social Determinants of Health Will the patient participate in the screening: Yes Do you worry about a steady place to live?: No Do you have any problems with any of the following?: No known problems In the past 12 months,have you had to go without utilities?: No Transportation Issues: No Has anyone in your support network made you feel unsafe?: No Have you or anyone in your house had to go w/o enough food: No - Nursing Vital Signs Nursing Vital Signs: Initial Vital Signs Temperature 97.8 F 01/23/25 12:45 Pulse Rate 70 01/23/25 12:45 Blood Pressure 135/75 01/23/25 12:45 O2 Sat by Pulse Oximetry 99 01/23/25 12:45 Pain Scale Pain Intensity [Back] 4 Pain Intensity 4 - Physical Exam General Appearance: no apparent distress, alert Eye Exam: PERRL/EOMI, eyes nml inspection Neck Exam: normal inspection, non-tender, supple, full range of motion, No meningismus, No midline tenderness Respiratory Exam: normal breath sounds, lungs clear, No respiratory distress Cardiovascular Exam: regular rate/rhythm, normal heart sounds Gastrointestinal Exam: soft, No tenderness, No mass Back Exam: muscle spasm (in the lower lumbar region, no mid line tenderness) Extremity Exam: normal inspection, normal range of motion, No calf tenderness, No pedal edema Neurologic Exam: alert, oriented x 3, cooperative, branch services manager II-XII nml as tested, normal mood/affect, nml station & gait, sensation nml, No motor deficits Skin Exam: normal color, warm, dry, No rash SpO2: 99 Ordered Tests: Active Orders 24 hr Category Date Time Status LUMBAR SPINE W/O [CT] Stat Exams 01/23/25 12:59 Completed THORACIC SPINE W/O CONTRAST [CT] Stat Exams 01/23/25 12:59 Completed Medication Summary Discontinued Medications Generic Name Dose Route Start Last Admin Trade Name Freq PRN Reason Stop Dose Admin Cyclobenzaprine HCl 10 mg 01/23/25 13:00 01/23/25 13:05 Cyclobenzaprine Hcl 10 Mg Tablet PO 01/23/25 13:01 10 mg STAT ONE Administration Cyclobenzaprine HCl Confirm 01/23/25 13:04 Cyclobenzaprine Hcl 10 Mg Tablet Administered 01/23/25 13:05 Dose 10 mg .ROUTE .[employer]-MED ONE - Progress Progress Note: 01/23/25 13:[address] scans, will provide PO muscle relaxant. 01/23/25 14:23 Procedures: [id number] CT/LUMBAR SPINE W/O Indication: Pain following fall. Multiple contiguous axial images obtained through the lumbar spine. Sagittal and coronal reformatted images obtained. Osseous structures remain demineralized. There remains minimal multilevel endplate spurring and mild bilateral L5-S1 degenerative facet arthropathy. No acute fracture, suspicious bony lesions, or spinal canal stenosis. Sagittal and coronal reformatted images again demonstrates minimal grade 1 L5 listhesis. No acute compression fracture. Disc spaces maintained. Visualized noncontrasted soft tissues again demonstrates minimal aortic calcifications. Impression: Chronic findings including osteopenia, degenerative spondylosis, grade 1 L5 listhesis, and aortic calcifications unchanged in appearance compared to lumbar radiograph May 03, 2023. No new/acute findings. 01/23/25 14:23 Multiple contiguous axial images obtained through the thoracic spine. Sagittal and coronal reformatted images obtained. Comparison: May 15, 2023 Osseous structures remain demineralized. Worsening remote appearing superior endplate fracture T11 with approximately 50% height loss, previously approximately 25% height loss. Appearance grossly similar to chest radiograph January 05, 2025. Posterior fracture again slightly encroaches on spinal canal. Stable T9-T12 degenerative vacuum disc phenomena and small posterior superior T12 vertebral hemangioma. No new/acute fracture, suspicious bony lesions, or spinal canal stenosis. Sagittal and coronal reformatted images again demonstrates normal alignment with T11-T12 disc space narrowing. Visualized noncontrasted soft tissues again demonstrates mild scattered aortic calcifications and a few tiny left hilar calcified nodes. Impression: Again remote T11 superior endplate fracture as detailed, osteopenia, T9-T12 degenerative disc disease, T12 vertebral hemangioma, arteriosclerotic disease, and old granulomatous disease. No new/acute - Departure Departure Disposition: Home Clinical Impression: Back pain Qualifiers: Back pain location: back pain in unspecified location Chronicity: unspecified Back pain laterality: unspecified Qualified Code(s): M54.9 - Dorsalgia, unspecified T11 vertebral fracture Qualifiers: Encounter type: initial encounter Fracture type: closed Fracture morphology: unspecified fracture morphology Qualified Code(s): S22.089A - Unspecified fracture of T11-T12 vertebra, initial encounter for closed fracture Compression of thoracic vertebra Qualifiers: Encounter type: initial encounter Thoracic vertebra fracture level: T11 Qualified Code(s): S22.080A - Wedge compression fracture of T11-T12 vertebra, initial encounter for closed fracture Condition: Stable Critical Care Time: No Referrals: SARAHY GONZALZE MD [Primary Care Provider, [facility]] - Follow up/PCP as directed Instructions: Low Back Pain (DC), Vertebral compression fracture, TLSO and LSO Additional Instructions: Worsening remote appearing superior endplate fracture T11 with approximately 50% height loss, previously approximately 25% height loss. Prescriptions: Back Brace [Back Stabilizer] 1 each MC DAILY #1 unit Cyclobenzaprine HCl 10 mg [Cyclobenzaprine 10 MG] 10 mg PO HS PRN PRN #7 tablet PRN Reason: Muscle Spasms
--- NOTE | 2025-01-23 14:15 | XRAY ---
Indication: Pain following fall. Multiple contiguous axial images obtained through the thoracic spine. Sagittal and coronal reformatted images obtained. Comparison: May 15, 2023 Osseous structures remain demineralized. Worsening remote appearing superior endplate fracture T11 with approximately 50% height loss, previously approximately 25% height loss. Appearance grossly similar to chest radiograph January 05, 2025. Posterior fracture again slightly encroaches on spinal canal. Stable T9-T12 degenerative vacuum disc phenomena and small posterior superior T12 vertebral hemangioma. No new/acute fracture, suspicious bony lesions, or spinal canal stenosis. Sagittal and coronal reformatted images again demonstrates normal alignment with T11-T12 disc space narrowing. Visualized noncontrasted soft tissues again demonstrates mild scattered aortic calcifications and a few tiny left hilar calcified nodes. Impression: Again remote T11 superior endplate fracture as detailed, osteopenia, T9-T12 degenerative disc disease, T12 vertebral hemangioma, arteriosclerotic disease, and old granulomatous disease. No new/acute findings.
--- NOTE | 2025-01-23 14:17 | XRAY ---
Indication: Pain following fall. Multiple contiguous axial images obtained through the lumbar spine. Sagittal and coronal reformatted images obtained. Osseous structures remain demineralized. There remains minimal multilevel endplate spurring and mild bilateral L5-S1 degenerative facet arthropathy. No acute fracture, suspicious bony lesions, or spinal canal stenosis. Sagittal and coronal reformatted images again demonstrates minimal grade 1 L5 listhesis. No acute compression fracture. Disc spaces maintained. Visualized noncontrasted soft tissues again demonstrates minimal aortic calcifications. Impression: Chronic findings including osteopenia, degenerative spondylosis, grade 1 L5 listhesis, and aortic calcifications unchanged in appearance compared to lumbar radiograph May 03, 2023. No new/acute findings.
== END 2025-01-23 14:42 | disposition home or self-care (01) ==
LOC: ED 12:42
DX: S22.080A Wedge compression fracture of T11-T12 vertebra, initial encounter for closed fracture (principal); W19.XXXA Unspecified fall, initial encounter; Y93.K9 Activity, other involving animal care; M54.9 Dorsalgia, unspecified; I10 Essential (primary) hypertension; Z79.01 Long term (current) use of anticoagulants; Z79.891 Long term (current) use of opiate analgesic; Z79.899 Other long term (current) drug therapy